=== PATIENT | male | born 1970 | race Caucasian/White ===

== ENCOUNTER 2017-04-23 10:00 | Emergency (ER) | payer BC ==
--- NOTE | 2017-04-23 10:21 | ED.PDOC ---
History of Present Illness - General Chief Complaint: Cardiac Respiratory Arrest Stated Complaint: irregular heart rate Time Seen by Provider: 04/23/17 10:13 Source: patient, RN notes reviewed, Vital Signs reviewed Exam Limitations: no limitations - History of Present Illness Initial Comments: Patient comes in with c/o irregular heart beat that started about 6am today. Reports his heart just felt funny. + mild SOB. No nausea or diaphoresis. Mild dull headache. Has had similar episodes in the past but normally don't last as long so he has not had them evaluated. Today his symptoms lasted until he walked into the ER. Now all his symptoms have resolved. Timing/Duration: 4-6 hours Severity: moderate Improving Factors: nothing Worsening Factors: nothing Associated Symptoms: headaches, shortness of breath Allergies/Adverse Reactions: Allergies NO KNOWN ALLERGY Allergy (Verified 04/23/17 10:30) Home Medications: Ambulatory Orders NK [NK] 04/23/17 Review of Systems - Review of Systems Constitutional: States: no symptoms reported. Denies: chills, diaphoresis, fever, malaise Respiratory: States: short of breath. Denies: cough Cardiology: States: see HPI, palpitations. Denies: chest pain, syncope Gastrointestinal/Abdominal: States: no symptoms reported. Denies: nausea Musculoskeletal: States: no symptoms reported Skin: States: no symptoms reported Neurological: States: see HPI, headache. Denies: numbness, paresthesia, tingling All other Systems: No Change from Baseline Family Medical History - Family History Mother Family History: Unknown Physical Exam - Physical Exam General Appearance: Alert, Comfortable, No apparent distress, Well Developed, Well Groomed, Well Hydrated, Well Nourished Neck: supple, normal inspection Respiratory: chest non-tender, lungs clear, normal breath sounds, no respiratory distress, no accessory muscle use Cardiovascular/Chest: normal peripheral pulses, regular rate, rhythm, no gallop , no JVD, no murmur Peripheral Pulses: radial,right: 2+, radial,left: 2+ Gastrointestinal/Abdominal: normal bowel sounds, non tender, soft, no organomegaly, no pulsatile mass Extremity: normal range of motion, normal inspection Neurologic: alert, normal mood/affect, oriented x 3 Skin Exam: normal color, warm/dry Progress - Progress Progress: 04/23/17 11:14 Discussed normal workup with patient and family Recommended follow up with PCP for Hollter monitor - Results/Orders Results/Orders: Laboratory Tests 04/23/17 04/23/17 04/23/17 10:30 10:30 10:30 WBC 5.9 RBC 5.41 Hgb 17.0 Hct 49.3 MCV 91.1 MCH 31.4 H MCHC 34.5 RDW 13.3 Plt Count 223 MPV 9.3 Absolute Neuts (auto) 3.80 Absolute Lymphs (auto) 1.70 Absolute Monos (auto) 0.30 Absolute Eos (auto) 0.10 Absolute Basos (auto) 0.10 Neutrophils % 63.4 Lymphocytes % 28.1 Monocytes % 5.3 Eosinophils % 2.3 Basophils % 0.9 D-Dimer, Quantitative < 200 Sodium 139 Potassium 4.1 Chloride 105 Carbon Dioxide 26 Anion Gap 12.1 BUN 10 Creatinine 1.01 BUN/Creatinine Ratio 9.9 L Random Glucose 164 H Serum Osmolality 280.2 Calcium 9.5 Total Bilirubin 0.6 AST 28 ALT 33 Alkaline Phosphatase 44 Creatine Kinase 132 CK-MB (CK-2) 1.5 CK-MB (CK-2) % Not Reportable Troponin I < 0.02 Serum Total Protein 7.2 Albumin 4.3 Globulin 2.9 Albumin/Globulin Ratio 1.5 - EKG/XRAY/CT EKG: [place], no ST T wave changes Comments: Rate 96 XRAY: chest - Normal per Radiologist Departure - Departure Clinical Impression: Palpitations Time of Disposition: 11:15 Disposition: Discharge to Home or Self Care Condition: Good Departure Forms: ED Discharge - Pt. Copy, Patient Portal Self Enrollment Instructions: DI for Palpitations Diet: resume usual diet Activity: increase activity as tolerated Referrals: Luis Maier MD [Primary Care Provider] - 1-5 Days (Get holter monitor) Home Medications: Ambulatory Orders NK [NK] 04/23/17 Additional Instructions: Stop Dipping
[2017-04-23 10:34] VITALS: TEMP 98.2
--- NOTE | 2017-04-23 10:38 | RAD ---
EXAM DESCRIPTION: Chest,2 Views CLINICAL HISTORY: Palpitations COMPARISON: None available FINDINGS: The cardiomediastinal silhouette is unremarkable. There is no airspace consolidation or pleural effusion. The bronchovascular markings are within normal limits, and the lungs are not hyperinflated. There is no pneumothorax or acute fracture. IMPRESSION: Negative exam. Electronically signed by: Dejan Vivar MD 04/23/2017 10:37 AM CDT
[2017-04-23 10:47] VITALS: O2SAT 95
[2017-04-23 11:31] VITALS: BP 128/84
== END 2017-04-23 11:29 | disposition home or self-care (01) ==
LOC: ER 10:00
DX: R00.2 Palpitations (principal)

== ENCOUNTER → 2017-04-27 | Outpatient (CLI) | payer BC | END | disposition home or self-care (01) | LOC: GMAM 10:20 | PROVIDERS: ATTEND Family Medicine | DX: Z12.5 Encounter for screening for malignant neoplasm of prostate (principal) ==

== ENCOUNTER → 2018-01-08 | Outpatient (CLI) | payer BC | LOC: GMAM 14:26 | PROVIDERS: ATTEND Family Medicine | DX: E29.1 Testicular hypofunction (principal) ==

== ENCOUNTER → 2018-09-12 | Outpatient (CLI) | payer BC | LOC: GMAM 10:47 | PROVIDERS: ATTEND Family Medicine | DX: Z00.00 Encounter for general adult medical examination without abnormal findings (principal) ==

== ENCOUNTER → 2019-12-18 | Outpatient (CLI) | payer BC, OTHER ==
--- NOTE | 2019-12-18 13:30 | MRI ---
Study: MRI of the left forearm. Indication: PAIN IN LEFT ARM Technique: Multiplanar, multi sequence MRI of the left forearm was obtained without intravenous contrast. Comparison: None Findings: Examination not optimized to evaluate the wrist or elbow for internal derangement. Partial visualization of tendinosis and attenuation of the distal biceps tendon at the peripheral [id number] but suboptimally evaluated by this exam. No complete tendon rupture. Mild intramuscular edema within the adjacent supinator muscle belly. No tear of the musculature of the forearm. No fracture of the radius or ulna. No cutaneous abnormality identified. Impression: Partial visualization of tendinosis and attenuation of the distal biceps tendon at the level of the radial tuberosity with adjacent intramuscular edema within the supinator muscle belly. These changes can indicate acute strains. Further characterization with dedicated MRI of the left elbow recommended. Electronically signed by: Fabricio Vincent MD 12/18/2019 1:28 PM CDT
== END ==
LOC: MRI 10:54
PROVIDERS: ATTEND Family Medicine
DX: M75.22 Bicipital tendinitis, left shoulder (principal); R60.9 Edema, unspecified

== ENCOUNTER → 2019-12-26 | Outpatient (CLI) | payer BC, OTHER ==
--- NOTE | 2019-12-26 12:54 | MRI ---
Study: MRI of the Left Elbow. Indication: PAIN LEFT ELBOW Technique: Multiplanar, multi sequence MRI of the left elbow was obtained without intravenous contrast. Comparison: MRI left forearm December 18, 2019. Findings: High-grade tendinosis and partial thickness tearing of the distal biceps tendon from its insertion on the radial tuberosity. Only miniscule fibers maintaining continuity. The torn tendon fibers are proximally retracted by 1.7 cm with surrounding inflammation noted. Low-grade insertional triceps tendinosis. Brachialis tendon insertion intact. Common extensor tendinosis. Common flexor tendon origin intact. No tear of the radial or ulnar collateral ligaments. Tiny elbow effusion. No acute fracture or advanced osteoarthritis. Ulnar nerve intact. Impression: High grade partial-thickness tearing distal biceps tendon from the radial tuberosity with torn tendon fibers retracted proximally by 1.7 cm. Low-grade insertional triceps tendinosis. Tiny elbow effusion. Common flexor tendinosis without tear. Electronically signed by: Fabricio Vincent MD 12/26/2019 12:52 PM CDT
== END ==
LOC: MRI 08:58
PROVIDERS: ATTEND Family Medicine
DX: S46.112A Strain of muscle, fascia and tendon of long head of biceps, left arm, initial encounter (principal); M75.92 Shoulder lesion, unspecified, left shoulder; M25.422 Effusion, left elbow

== ENCOUNTER → 2020-04-02 | Outpatient (CLI) | payer BC | LOC: GMAM 11:01 | PROVIDERS: ATTEND Family Medicine | DX: Z12.5 Encounter for screening for malignant neoplasm of prostate (principal); E29.1 Testicular hypofunction ==

== ENCOUNTER → 2020-04-12 | Outpatient (CLI) | payer BC ==
--- NOTE | 2020-04-12 14:35 | CT ---
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 Sagittal and coronal reconstructions were obtained. FINDINGS: The visible portion of the chest is limited and demonstrates a right middle lobe nodule that measures 4 mm. The heart is not enlarged. The lesion identified on the recent ultrasound is a very well circumscribed 4 x 3.4 x 4.5 cm mass. This lesion is isodense to surrounding renal parenchyma on the noncontrast examination and contains a single internal calcification. After IV contrast administration and on the delayed contrast images, the lesion enhances. The precontrast internal density measurement R [id number] and post contrast Hounsfield density measurements up to 55. There is distortion of the right lower pole cortex. There is no hydronephrosis. Contrast is excreted into normal collecting system and ureters on the delayed images. There are no lymph nodes in the retroperitoneum or the level of the renal rosa. There is no visible filling defect within the right renal vein. The liver, spleen, pancreas, adrenal glands, and left kidney enhance appropriately and demonstrate no acute abnormality. There is a diffuse decreased density of the hepatic parenchyma without an enhancing mass. The gallbladder is intact and there is no evidence of biliary dilatation. There is no bowel obstruction or free air. There is no acute inflammatory process. The appendix is visible and normal. The aorta, IVC and retroperitoneum are negative. Structures within the pelvis are negative. The visible osseous structures are negative. IMPRESSION: 1. 4 x 3.4 x 4.5 cm enhancing low density mass extending from the lower pole of the right kidney. Internal enhancement signifies a solid lesion and neoplasm should be suspected. No lymphadenopathy or evidence of metastatic disease. 2. Hepatic steatosis. 3. 4 mm right middle lobe pulmonary nodule. CT follow-up in one year is recommended. This exam was performed according to our departmental dose-optimization program, which includes automated exposure control, adjustment of the mA and/or kV according to patient size and/or use of iterative reconstruction technique. Electronically signed by: Ted Chavarria MD 04/12/2020 2:34 PM CDT
== END ==
LOC: CT 08:24
PROVIDERS: ATTEND Family Medicine
DX: D41.11 Neoplasm of uncertain behavior of right renal pelvis (principal); K76.0 Fatty (change of) liver, not elsewhere classified; R91.1 Solitary pulmonary nodule

== ENCOUNTER → 2020-08-20 | Outpatient (CLI) | payer BC ==
--- NOTE | 2020-08-20 15:43 | CT ---
EXAM DESCRIPTION: Abdoment/Pelvis w/o Contrast CLINICAL HISTORY: 49 years, Male, S/P RIGHT RADICAL NEPHRECTOMY FOR CA COMPARISON: Previous CT abdomen and pelvis April 12, 2020 TECHNIQUE: CT of the abdomen and pelvis is performed according to our non contrast protocol. FINDINGS: The lung bases are clear of infiltrates. Noncalcified nodule 3 mm in the peripheral right middle lobe. Continued follow-up recommended. Heart size is normal. Liver, spleen, and pancreas are unremarkable. No calcified stones in the gallbladder. Adrenal glands appear normal. The right kidney is surgically absent. No mass in the right renal fossa. No retroperitoneal adenopathy. Thickened appearance of the right adrenal gland is a new development compared to previous study. Differential considerations would include adrenal hyperplasia, infiltrating adrenal metastasis, or adrenal hemorrhage. The left adrenal gland appears normal. The right adrenal gland measures 1.1 x 2.3 cm. Follow-up CT in three months is recommended to see if there is evidence of further enlargement which would indicate a need for biopsy. The left kidney contains a small cyst laterally unchanged from previous.. No renal stones or hydronephrosis. Small bowel loops appear normal in caliber with normal wall thickness. There is no lymphadenopathy, inflammation, or free fluid observed. In the pelvis, the appendix is small with no surrounding inflammation. No inflammation around the cecum or terminal ileum or sigmoid colon. No stones in the distal ureters or bladder. Rectal wall thickness is normal for degree of distention. No free fluid or mass in the pelvis. Prostate appears mildly prominent measuring 4.3 cm in transverse dimension. Fatty patulous inguinal rings with no herniated bowel. Slightly thick-walled sigmoid colon with no surrounding inflammation to suggest acute diverticulitis. Multiple sigmoid diverticula are present. No inguinal or lower pelvic adenopathy. Coronal and sagittal reformatted images confirm the findings. IMPRESSION: Surgically absent right kidney. Thickened right adrenal gland is a new development compared to previous study. Follow-up recommended. 3 mm nodule in the right middle lobe. This exam was performed according to our departmental dose-optimization program, which includes automated exposure control, adjustment of the mA and/or kV according to patient size and/or use of iterative reconstruction technique. Total DLP equals 1468.76 mGycm. Electronically signed by: Osorio Schneider MD 08/20/2020 3:41 PM [facility]
== END ==
LOC: CT 08:16
PROVIDERS: ATTEND Urology
DX: C64.1 Malignant neoplasm of right kidney, except renal pelvis (principal); I89.0 Lymphedema, not elsewhere classified; Z90.5 Acquired absence of kidney; E27.9 Disorder of adrenal gland, unspecified; R91.1 Solitary pulmonary nodule